=== PATIENT | male | born 1990 | race African-American/Black ===

== ENCOUNTER 2018-02-08 01:56 | Emergency (ER) | payer OTHER ==
[2018-02-08 02:03] VITALS: BP 179/92; PULSE 110; RESP 20
[2018-02-08] MEDS ORDERED: ACETAMINOPHEN TAB 500 MG TAB PO STA (02:20)
[2018-02-08] MEDS ORDERED: IBUPROFEN 600 MG TAB PO STA (02:20)
--- NOTE | 2018-02-08 02:27 | ED ---
Fever HPI - General Chief Complaint: Fever Stated Complaint: headache,body aches Time Seen by Provider: 02/08/18 02:13 Source: patient, RN notes reviewed Mode of arrival: ambulatory Limitations: no limitations - History of Present Illness Initial Comments: This is a 27-year-old male who presents to the emergency department with chief complaint of fever. Patient does not speak throughout examination. His girlfriend speaks for him. She states that yesterday morning patient developed a headache, sore throat and body aches. She states he also developed a a fever this evening. Patient denies cough, abdominal pain, nausea or vomiting, diarrhea or constipation, dysuria or hematuria. He does state that he has felt short of breath today. - Related Data Home Medications Medication Instructions Recorded Confirmed No Known Home Medications [No 02/08/18 02/08/18 Known Home Medications] Allergies Allergy/AdvReac Type Severity Reaction Status Date / Time No Known Allergies Allergy Verified 02/08/18 02:03 Review of Systems ROS Statement: Those systems with pertinent positive or pertinent negative responses have been documented in the HPI. ROS Other: All systems not noted in ROS Statement are negative. Past Medical History Past Medical History: No Reported History History of Any Multi-Drug Resistant Organisms: None Reported Past Surgical History: No Surgical Hx Reported Past Psychological History: No Psychological Hx Reported Smoking Status: Current every day smoker Past Alcohol Use History: Occasional Past Drug Use History: None Reported General Exam - General Exam Comments Initial Comments: General: Awake and alert, well-developed; in no apparent distress. Sitting on ED stretcher, his girlfriend rubbing his back. HEENT: Head atraumatic, normocephalic. Pupils are equal, round and reactive to light. Extraocular movements intact. Oropharynx moist with mild erythema. No exudates. Neck: Supple. Normal ROM. Tender anterior cervical lymphadenopathy. Cardiovascular: Regular rate and rhythm. No murmurs, rubs or gallops. Chest symmetrical. Respiratory: Lungs clear to auscultation bilaterally. No wheezes, rales or rhonchi. Normal respiratory effort with no use of accessory muscles. Abdomen: Soft, non-tender, non-distended. No rigidity, rebound or guarding. Normal bowel sounds in all 4 quadrants. Musculoskeletal: Normal ROM, no tenderness bilateral upper and lower extremities. Skin: [place], warm and dry without rashes or lesions. Neurological: Alert and oriented x3. CN II-XII grossly intact. No focal neuro deficits. Limitations: no limitations Course Vital Signs 02/08/18 02/08/18 02:00 03:11 Temperature 103.1 F H 102 F H Pulse Rate 110 H Respiratory 20 Rate Blood Pressure 179/92 O2 Sat by Pulse 100 Oximetry - Reevaluation(s) Reevaluation #1: At this time, patient is resting comfortably in bed. I discussed findings with patient and his girlfriend at bedside. Strep and heterophile were negative. Influenza was negative. Chest x-ray revealed no acute abnormalities. I reassessed patient and he denies any neck stiffness. Normal range of motion of the neck. No meningeal signs. Urine, CBC and CMP ordered and are pending. 02/08/18 03:09 Medical Decision Making - Medical Decision Making This is a 27-year-old male who presents to the emergency department chief complaint of fever. He also complained of sore throat, headache and body aches. The symptoms began yesterday morning. Patient presented with a fever 103.1. On physical examination, oropharynx is mildly erythematous without exudates. Tender cervical lymphadenopathy noted. Lungs were clear to auscultation bilaterally. Heterophile and rapid strep were negative. Chest x- ray revealed no acute abnormalities. Patient denied any neck stiffness and had normal range of motion. No meningeal signs. This case was discussed with attending physician, Dr. Randall. I reevaluated patient and recommended adding on CBC, CMP, UA and blood cultures. I explained to patient the importance of narrowing down the source of his high temperature. Patient was agreeable. The nurse went back to collect blood cultures and patient stated he was feeling improved and wanted to be discharged home. He refused additional blood work and UA. He refused administration of antibiotics. Patient signed out AMA. - Lab Data Result diagrams: 02/08/18 02:30 02/08/18 02:30 Lab Results 02/08/18 02/08/18 02/08/18 Range/Units 02:30 02:30 02:30 WBC (3.8-10.6) k/uL RBC (4.30-5.90) m/uL Hgb (13.0-17.5) gm/dL Hct (39.0-53.0) % MCV (80.0-100.0) fL MCH (25.0-35.0) pg MCHC (31.0-37.0) g/dL RDW (11.5-15.5) % Plt Count (150-450) k/uL Neutrophils % % Lymphocytes % % Monocytes % % Eosinophils % % Basophils % % Neutrophils # (1.3-7.7) k/uL Lymphocytes # (1.0-4.8) k/uL Monocytes # (0-1.0) k/uL Eosinophils # (0-0.7) k/uL Basophils # (0-0.2) k/uL Sodium (137-145) mmol/L Potassium (3.5-5.1) mmol/L Chloride (98-107) mmol/L Carbon Dioxide (22-30) mmol/L Anion Gap mmol/L BUN (9-20) mg/dL Creatinine (0.66-1.25) mg/dL Est GFR (CKD-EPI)AfAm (>60 ml/min/1.73 sqM) Est GFR (CKD-EPI)NonAf (>60 ml/min/1.73 sqM) Glucose (74-99) mg/dL Calcium (8.4-10.2) mg/dL Total Bilirubin (0.2-1.3) mg/dL AST (17-59) U/L ALT (21-72) U/L Alkaline Phosphatase (38-126) U/L Total Protein (6.3-8.2) g/dL Albumin (3.5-5.0) g/dL Heterophile Antibody Negative (Negative) Influenza Type A RNA Not Detected (Not Detectd) Influenza Type B (PCR) Not Detected (Not Detectd) Group A Strep Rapid Negative (Negative) 02/08/18 02/08/18 Range/Units 02:30 02:30 WBC 14.6 H (3.8-10.6) k/uL RBC 6.11 H (4.30-5.90) m/uL Hgb 17.1 (13.0-17.5) gm/dL Hct 50.1 (39.0-53.0) % MCV 82.1 (80.0-100.0) fL MCH 28.0 (25.0-35.0) pg MCHC 34.2 (31.0-37.0) g/dL RDW 12.7 (11.5-15.5) % Plt Count 265 (150-450) k/uL Neutrophils % 86 % Lymphocytes % 8 % Monocytes % 5 % Eosinophils % 1 % Basophils % 0 % Neutrophils # 12.5 H (1.3-7.7) k/uL Lymphocytes # 1.1 (1.0-4.8) k/uL Monocytes # 0.7 (0-1.0) k/uL Eosinophils # 0.1 (0-0.7) k/uL Basophils # 0.0 (0-0.2) k/uL Sodium 141 (137-145) mmol/L Potassium 3.8 (3.5-5.1) mmol/L Chloride 104 (98-107) mmol/L Carbon Dioxide 22 (22-30) mmol/L Anion Gap 15 mmol/L BUN 9 (9-20) mg/dL Creatinine 0.90 (0.66-1.25) mg/dL Est GFR (CKD-EPI)AfAm >90 (>60 ml/min/1.73 sqM) Est GFR (CKD-EPI)NonAf >90 (>60 ml/min/1.73 sqM) Glucose 109 H (74-99) mg/dL Calcium 9.5 (8.4-10.2) mg/dL Total Bilirubin 0.7 (0.2-1.3) mg/dL AST 28 (17-59) U/L ALT 23 (21-72) U/L Alkaline Phosphatase 64 (38-126) U/L Total Protein 8.0 (6.3-8.2) g/dL Albumin 4.5 (3.5-5.0) g/dL Heterophile Antibody (Negative) Influenza Type A RNA (Not Detectd) Influenza Type B (PCR) (Not Detectd) Group A Strep Rapid (Negative) - Radiology Data Radiology results: report reviewed Chest x-ray findings: Heart and mediastinum are normal. Lungs are clear. Diaphragm is normal. There is no heart failure. Bony thorax is intact. Impression: Normal chest. Disposition Clinical Impression: Fever Disposition: Left Against Medical Advice Condition: Undetermined Is patient prescribed a controlled substance at d/c from ED?: No Referrals: Angelique Morris MD [Primary Care Provider] - 1-2 days Time of Disposition: 03:30
[2018-02-08] MEDS ORDERED: SODIUM CHLORIDE 0.9% 1,000 ML IV STA (02:32)
--- NOTE | 2018-02-08 02:52 | XR ---
EXAMINATION TYPE: XR chest 2V DATE OF EXAM: 02/08/2018 COMPARISON: NONE HISTORY: Short of breath TECHNIQUE: Frontal and lateral views of the chest are obtained. FINDINGS: Heart and mediastinum are normal. Lungs are clear. Diaphragm is normal. There is no heart failure. Bony thorax is intact. IMPRESSION: Normal chest
[2018-02-08 03:12] VITALS: TEMP 102
[2018-02-08] MEDS ORDERED: cefTRIAXone IN SWFI 2,000 MG/20 ML SYRINGE IVP STA (03:16)
[2018-02-08 03:17] LABS: Basophils % (A) 0 %; Eosinophils # (A) 0.1 k/uL (0-0.7); Eosinophils % (A) 1 %; HCT 50.1 % (39.0-53.0); HGB 17.1 gm/dL (13.0-17.5); Lymphocytes # (A) 1.1 k/uL (1.0-4.8); Lymphocytes % (A) 8 %; MCHC 34.2 g/dL (31.0-37.0); MCV 82.1 fL (80.0-100.0); Mean Platelet Volume 6.6; Monocytes # (A) 0.7 k/uL (0-1.0); Monocytes % (A) 5 %; Neutrophils # (A) 12.5 k/uL (1.3-7.7); Neutrophils % (A) 86 %; Platelet Count 265 k/uL (150-450); RBC 6.11 m/uL (4.30-5.90); RDW 12.7 % (11.5-15.5); WBC 14.6 k/uL (3.8-10.6)
[2018-02-08 03:21] LABS: ALT 23 U/L (21-72); AST 28 U/L (17-59); Albumin 4.5 g/dL (3.5-5.0); Alkaline Phosphatase 64 U/L (38-126); Anion Gap 15 mmol/L; Blood Urea Nitrogen 9 mg/dL (9-20); Calcium 9.5 mg/dL (8.4-10.2); Carbon Dioxide 22 mmol/L (22-30); Chloride 104 mmol/L (98-107); Glucose 109 mg/dL (74-99); Sodium 141 mmol/L (137-145); Total Bilirubin 0.7 mg/dL (0.2-1.3)
[2018-02-08 03:22] LABS: Potassium 3.8 mmol/L (3.5-5.1)
== END 2018-02-08 03:24 | disposition left against medical advice (07) ==
LOC: EC 01:56
DX: R50.9 Fever, unspecified (principal); R51 Headache; R06.02 Shortness of breath; R59.0 Localized enlarged lymph nodes; M79.1 Myalgia; F17.200 Nicotine dependence, unspecified, uncomplicated; Z53.29 Procedure and treatment not carried out because of patient's decision for other reasons
CPT/HCPCS: 36415; 71046; 80053; 85025; 86308; 87081; 87430; 87502; 96360; 99283